=== PATIENT | female | born 1955 | race Caucasian/White ===

== ENCOUNTER → 2019-08-11 | Outpatient (CLI) | payer BC, OTHER ==
[~2019-08-11] MED LIST: ALDACTONE50 MG PO; BENAZEPRIL HCL20 MG PO; CARDIZEM CD180 MG PO; CARVEDILOL25 MG PO; DEMADEX20 MG PO; OMEPRAZOLE20 M1 PO; PACERONE 200 M200 M1 PO; POTASSIUM20 PO; XARELTO20 MG PO; ZETIA10 MG PO; ZOLOFT50 MG PO
== END ==
LOC: SJCVCIMAG 06-19 12:54
PROVIDERS: ATTEND Internal Medicine
DX: I08.8 Other rheumatic multiple valve diseases (principal); I48.91 Unspecified atrial fibrillation; I50.9 Heart failure, unspecified